=== PATIENT | male | born 1975 | race Two or more races ===

== ENCOUNTER 2018-11-09 19:48 | Emergency (ER) | payer SELFPAY ==
[~2018-11-09] VITALS: Ht 172.7 cm; Wt 72.6 kg
[2018-11-09] MEDS ORDERED: NKM (19:54)
--- NOTE | 2018-11-09 19:55 | NUR ---
ED Nurse Note: Patient bibbridger RA 829 c/o left sided flank pain for the past 4 days,Pt states he been drinking for 2 days and not really eating for a week. Pt is AO x 4times, VSS, on room air no distress. ANAD seen Pt at bedside.
[2018-11-09] MEDS ORDERED: Lidocaine 2% Visc 15ml soln ORAL ONE (20:00)
[2018-11-09] MEDS ORDERED: Ketorolac 30mg Inj IV ONE (20:00)
[2018-11-09] MEDS ORDERED: Mylanta II UD 30ml ORAL ONE (20:00)
[2018-11-09] MEDS ORDERED: Dicyclomine HCl 10mg/5ml oral soln ORAL ONE (20:00)
--- NOTE | 2018-11-09 20:08 | NUR ---
ED Nurse Note: Blood sample sent to lab.
[2018-11-09 20:19] LABS: ANION GAP 23 mmol/L (5-15); BLOOD UREA NITROGEN 10 mg/dL (7-18); CALCIUM 9.7 MG/DL (8.5-10.1); CARBON DIOXIDE 22 MMOL/L (21-32); CHLORIDE 98 MMOL/L (98-107); CREATININE 0.9 MG/DL (0.55-1.30); POTASSIUM 2.8 MMOL/L (3.5-5.1); SODIUM 143 MMOL/L (136-145)
[2018-11-09 20:30] LABS: ALANINE AMINOTRANSFERASE 409 U/L (12-78); ALBUMIN 4.3 G/DL (3.4-5.0); ALKALINE PHOSPHATASE 103 U/L (46-116); ASPARTATE AMINO TRANSFERASE 465 U/L (15-37); BILIRUBIN,TOTAL 4.7 MG/DL (0.2-1.0)
[2018-11-09 20:31] LABS: BILIRUBIN,DIRECT 2.4 MG/DL (0.0-0.3)
[2018-11-09 20:37] LABS: HEMOGLOBIN 14.6 G/DL (14.2-18.0); MEAN CORPUSCULAR VOLUME 96 FL (80-99); PLATELET COUNT 168 K/UL (150-450); RED BLOOD COUNT 4.27 M/UL (4.70-6.10); RED CELL DISTRIBUTION WIDTH 11.9 % (11.6-14.8)
[2018-11-09] MEDS ORDERED: Isovue-300 100ml vial INJ PRN (20:45)
[2018-11-09 20:53] VITALS: BP 146/93
--- NOTE | 2018-11-09 20:53 | NUR ---
ED Nurse Note: Pt went to CT scan.
--- NOTE | 2018-11-09 21:22 | Emergency Room Report ---
History of Present Illness General Chief Complaint: Abdominal Pain Source: Patient Present Illness HPI 43-year-old male presents ED for evaluation. Brought in by EMS complaining of left-sided abdominal pain for the last 4 days. Pain is dull, 8 out of 10, nonradiating. States he's been vomiting and has been drinking heavily. Denies chest pain or shortness of breath. Denies fevers or chills. No other aggravating relieving factors. Denies any other associated symptoms Allergies: Coded Allergies: No Known Allergies (Unverified , 11/09/18) Patient History Past Medical History: none Past Surgical History: none Pertinent Family History: none Social History: Reports: alcohol use; Denies: smoking, drug use Immunizations: UTD Reviewed Nursing Documentation: PMH: Agreed; PSxH: Agreed Nursing Documentation-PMH Past Medical History: No Stated History Review of Systems All Other Systems: negative except mentioned in HPI Physical Exam Vital Signs Date Time Temp Pulse Resp B/P (MAP) Pulse Ox O2 Delivery O2 Flow Rate FiO2 11/09/18 19:45 97.9 122 18 141/84 98 Room Air Sp02 EP Interpretation: reviewed, normal General Appearance: no apparent distress, alert, GCS 15, non-toxic Head: normocephalic, atraumatic Eyes: bilateral eye normal inspection, bilateral eye PERRL ENT: hearing grossly normal, normal pharynx, no angioedema, normal voice Neck: full range of motion, supple/symm/no masses Respiratory: lungs clear, normal breath sounds, speaking full sentences, other - L sided chest wall pain Cardiovascular #1: no edema, tachycardia Cardiovascular #2: 2+ carotid (R), 2+ carotid (L), 2+ radial (R), 2+ radial (L) , 2+ dorsalis pedis (R), 2+ dorsalis pedis (L) Gastrointestinal: normal bowel sounds, soft, non-distended, no guarding, no rebound, tenderness Rectal: deferred Genitourinary: normal inspection, no CVA tenderness Musculoskeletal: back normal, gait/station normal, normal range of motion, non- tender Neurologic: alert, oriented x3, responsive, motor strength/tone normal, sensory intact, speech normal Psychiatric: judgement/insight normal, memory normal, mood/affect normal, no suicidal/homicidal ideation Reflexes: 3+ bicep (R), 3+ bicep (L), 3+ tricep (R), 3+ tricep (L), 3+ knee (R) , 3+ knee (L) Skin: normal color, no rash, warm/dry, well hydrated Lymphatic: no adenopathy Medical Decision Making Diagnostic Impression: Primary Impression: Alcohol intoxication Qualified Codes: F10.929 - Alcohol use, unspecified with intoxication, unspecified Additional Impression: Abdominal pain Qualified Codes: R10.12 - Left upper quadrant pain ER Course Hospital Course 43 yo M presents to ED c/o L sided abd pain, vomiting. Differential diagnosis includes-appendicitis, cholecystitis, small bowel obstruction, gastritis, Clinical course Patient placed on stretcher. After initial history and physical I ordered labs , IV fluids, pain medications, CXR and CT scan Labs - no leukocytosis, K 2.8, LFTs elevated, ETOH elevated CXR - no acute process CT scan shows enlarged liver On reassessment symptoms improved. Likely gastritis secondary to alcohol use. Patient will be discharged to home. States he has a PMD I feel this is a highly complex case requiring extensive working including EKG/ Rhythm strip, Xray/CT/US, Blood/urine lab work, repeat exams while in ED, and administration of strong opiates/narcotics for pain control, admission to hospital or close patient follow up. Diagnosis - abdominal pain, alochol intoxication Stable and discharged to home. Followup with PMD. Return to ED if symptoms recur or worsen Labs Test 11/09/18 20:00 White Blood Count 8.0 K/UL (4.8-10.8) Red Blood Count 4.27 M/UL (4.70-6.10) Hemoglobin 14.6 G/DL (14.2-18.0) Hematocrit 41.0 % (42.0-52.0) Mean Corpuscular Volume 96 FL (80-99) Mean Corpuscular Hemoglobin 34.2 PG (27.0-31.0) Mean Corpuscular Hemoglobin Concent 35.6 G/DL (32.0-36.0) Red Cell Distribution Width 11.9 % (11.6-14.8) Platelet Count 168 K/UL (150-450) Mean Platelet Volume 5.3 FL (6.5-10.1) Neutrophils (%) (Auto) % (45.0-75.0) Lymphocytes (%) (Auto) % (20.0-45.0) Monocytes (%) (Auto) % (1.0-10.0) Eosinophils (%) (Auto) % (0.0-3.0) Basophils (%) (Auto) % (0.0-2.0) Differential Total Cells Counted 100 Neutrophils % (Manual) 84 % (45-75) Lymphocytes % (Manual) 7 % (20-45) Monocytes % (Manual) 8 % (1-10) Eosinophils % (Manual) 0 % (0-3) Basophils % (Manual) 1 % (0-2) Band Neutrophils 0 % (0-8) Platelet Estimate Adequate Platelet Morphology Normal Red Blood Cell Morphology Normal Sodium Level 143 MMOL/L (136-145) Potassium Level 2.8 MMOL/L (3.5-5.1) Chloride Level 98 MMOL/L (98-107) Carbon Dioxide Level 22 MMOL/L (21-32) Anion Gap 23 mmol/L (5-15) Blood Urea Nitrogen 10 mg/dL (7-18) Creatinine 0.9 MG/DL (0.55-1.30) Estimat Glomerular Filtration Rate > 60 mL/min (>60) Glucose Level 133 MG/DL (74-106) Calcium Level 9.7 MG/DL (8.5-10.1) Total Bilirubin 4.7 MG/DL (0.2-1.0) Direct Bilirubin 2.4 MG/DL (0.0-0.3) Aspartate Amino Transf (AST/SGOT) 465 U/L (15-37) Alanine Aminotransferase (ALT/SGPT) 409 U/L (12-78) Alkaline Phosphatase 103 U/L (46-116) Total Protein 8.7 G/DL (6.4-8.2) Albumin 4.3 G/DL (3.4-5.0) Globulin 4.4 g/dL Albumin/Globulin Ratio 1.0 (1.0-2.7) Lipase 298 U/L (73-393) Serum Alcohol 156 mg/dL EKG Diagnostic Results Rate: tachycardiac Rhythm: NSR ST Segments: no acute changes ASA given to the pt in ED: No Rhythm Strip Diag. Results EP Interpretation: yes Rhythm: NSR, no PVC's, no ectopy Chest X-Ray Diagnostic Results Chest X-Ray Diagnostic Results : Chest X-Ray Ordered: Yes # of Views/Limited/Complete: 1 View Indication: Chest Pain EP Interpretation: Yes Interpretation: no consolidation, no effusion, no pneumothorax, no acute cardiopulmonary disease Impression: No acute disease Electronically Signed by: Electronically signed by Norm Loyola MD CT/MRI/US Diagnostic Results CT/MRI/US Diagnostic Results : Imaging Test Ordered: CT A/P Impression The lung bases are clear. The liver is diffusely hypodense severe in degree and is enlarged spanning 23 cm. The spleen is normal size. There is no ascites. The appendix is normal. Kidneys are unremarkable. Urinary bladder is dilated. There is a left inguinal hernia containing fat. No evidence of bowel obstruction. The pancreas, adrenal glands and gallbladder are unremarkable. Last Vital Signs Date Time Temp Pulse Resp B/P (MAP) Pulse Ox O2 Delivery O2 Flow Rate FiO2 11/09/18 20:53 104 18 Room Air 11/09/18 20:53 98.0 146/93 98 Status: improved Disposition: HOME, SELF-CARE Condition: Stable Scripts Ondansetron Odt* (ZOFRAN ODT*) 4 Mg Tab.rapdis 4 MG BC EVERY 6 HOURS PRN for Nausea & Vomiting, #20 TAB 0 Refills Prov: Norm Loyola MD 11/09/18 Ranitidine Hcl* (ZANTAC*) 150 Mg Tablet 150 MG ORAL TWICE A DAY, #30 TAB Prov: Norm Loyola MD 11/09/18 Referrals: NOT CHOSEN IPA/,REFERRING (PCP) Norm Loyola MD November 09, 2018 21:22
[2018-11-09] MEDS ORDERED: ONDANSETRON ODT4 MG BC (21:34)
[2018-11-09] MEDS ORDERED: RANITIDINE HCL150 MG ORAL (21:34)
[2018-11-09 22:17] VITALS: BP 136/80
[2018-11-09 22:18] VITALS: BP 136/80
--- NOTE | 2018-11-09 22:18 | NUR ---
ER DISCHARGE NOTE: Patient is cleared to be discharged per ERMD, pt is aox4, on room air, with stable vital signs. pt was given dc and prescription instructions, pt was able to verbalize understanding, pt id band and iv site removed without complications. pt is able to ambulate with steady gait. pt took all belongings. Pt will take Taxi home.
--- NOTE | 2018-11-10 09:10 | Diagnostic Imaging Report ---
Indication: Abdominal pain Technique: Continuous helical transaxial imaging of the abdomen and pelvis was obtained from the lung bases to the pubic symphysis during intravenous contrast administration. Coronal 2-D reformats were also obtained. Study obtained in a Siemens sensation [address] Automatic Exposure Control was utilized. Total Dose length Product (DLP): 566.[address] Dose Index Volume (CTDIvol): 10.21 mGy Comparison: None Findings: The lung bases are clear. The liver is diffusely hypodense severe in degree and is enlarged spanning 23 cm. The spleen is normal size. There is no ascites. The appendix is normal. Kidneys are unremarkable. Urinary bladder is dilated. There is a left inguinal hernia containing fat. No evidence of bowel obstruction. The pancreas, adrenal glands and gallbladder are unremarkable. The sacroiliac joints appear abnormal and slightly irregular with ill-defined margins suspicious for sacroiliitis. Correlate clinically. IMPRESSION: Hepatomegaly with severe steatosis Distended urinary bladder. No hydronephrosis. Left inguinal hernia containing fat Suspected sacroiliitis. The CT scanner at [facility] is accredited by the [employer] and the scans are performed using dose optimization techniques as appropriate to a performed exam including Automatic Exposure control.
--- NOTE | 2018-11-10 10:51 | Diagnostic Imaging Report ---
Indication: Dyspnea Comparison: None A single view chest radiograph was obtained. Findings: Cardiomediastinal appearance is within normal limits for age. The lungs are clear. Pulmonary vascularity is appropriate. The diaphragmatic contour is smooth and costophrenic angles are sharp. No pleural effusions are identified. The bones are unremarkable. Impression: No acute findings
== END 2018-11-09 22:19 | disposition home or self-care (01) ==
LOC: EDBD 19:48 → EMR 20:56
DX: F10.120 Alcohol abuse with intoxication, uncomplicated (principal); R10.12 Left upper quadrant pain; R07.89 Other chest pain; R16.0 Hepatomegaly, not elsewhere classified; K76.0 Fatty (change of) liver, not elsewhere classified; K40.90 Unilateral inguinal hernia, without obstruction or gangrene, not specified as recurrent
CPT/HCPCS: 36415; 71045; 74177; 80053; 82248; 83690; 85007; 85025; 93005; 96361; 96374; 96375; 99284; G0480; J1885; J2405; Q9967; S0028; 80329; J8499